=== PATIENT | female | born 1950 ===

== ENCOUNTER 2018-07-03 09:08 | Outpatient (CLI) | payer OTHER ==
[~2018-07-03] VITALS: Ht 152.4 cm; Wt 49.9 kg
== END 2018-07-03 09:20 | disposition home or self-care (01) ==
LOC: OFIC 805 09:08
DX: H61.23 Impacted cerumen, bilateral (principal); H90.42 Sensorineural hearing loss, unilateral, left ear, with unrestricted hearing on the contralateral side; D33.3 Benign neoplasm of cranial nerves